=== PATIENT | male | born 1940 | race Caucasian/White ===

== ENCOUNTER 2021-05-08 14:21 | Observation (INO) | payer MEDICARE ==
[2021-05-08] VITALS (9 sets, daily range): BP systolic 127–168; BP diastolic 65–86
[~2021-05-08] VITALS: Ht 175.3 cm; Wt 70.0 kg
[~2021-05-08 14:21] MED LIST: AMLODIPINE BESY10 MG PO; AMLODIPINE5 MG PO; AMOXICILLIN500 MG PO; BABY ASPIRIN81 MG PO; CARDIZEM CD 180 PO; DIGITEK0.25 MG PO; DIGOXIN0.25 MG PO; FISH OIL1000 MG PO; FLUARIX QUADRIV1 IN1 IM; FLUZONE SPLT1 M1 IM; LISINOPRIL10 MG PO; LISINOPRIL20 M1 PO; LOSARTAN POTASS50 MG PO; MAXZIDE-2537.5 MG/TA PO; MULTIVITAMIN OR; PAROXETINE10 MG PO; PAROXETINE20 MG PO; PAROXETINE40 MG PO; PRADAXA75 MG PO; PROTONIX40 M2 PO; STRESS FORMULA OR; STRESS FORMULA PO; TENORMIN25 MG PO; TENORMIN50 MG PO; WARFARIN2.5 MG PO; WARFARIN5 MG PO; ZOCOR10 MG PO; [UNRECOGNIZED DRUG - CODE] PO
[2021-05-08 16:02] LABS: HEMATOCRIT 24.3 % (39.0-50.0); MEAN CELL VOLUME 91.4 fL CALC (80.0-100.0); MEAN CORPUSCULAR HGB 30.1 pG CALC (26.0-32.0); MEAN CORPUSCULAR HGB CONC 32.9 g/dL CAL (32.0-36.0); NEUT# 3.4 thou/uL (1.82-7.42); RED BLOOD COUNT 2.66 mill/uL (4.70-6.10); RED CELL DISTRI WIDTH 13.3 % (11.5-15.5); URINE BILIRUBIN - DIPSTICK NEGATIVE (NEGATIVE); URINE BLOOD DIPSTICK NEGATIVE (NEGATIVE); URINE COLOR YELLOW; URINE GLUCOSE - DIPSTICK NEGATIVE (NEGATIVE); URINE KETONE NEGATIVE (NEGATIVE); URINE LEUK ESTERASE NEGATIVE (NEGATIVE); URINE PH 7.5 (4.5-8.0); URINE PROTEIN - DIPSTICK NEGATIVE (NEG-TRACE); URINE SPECIFIC GRAVITY 1.015; URINE UROBILINOGEN - DIPSTICK 0.2 E.U./dL (0.2)
[2021-05-08 16:08] LABS: URINE NITRITE - DIPSTICK NEGATIVE (Negative)
[2021-05-08 16:19] LABS: ACT PARTIAL THROMBO TIME 22.2 SECONDS (20.0-32.5); ALKALINE PHOSPHATASE 62 u/l (38-126); ANION GAP 9 (6-22 (CALC)); BILIRUBIN, TOTAL 0.7 mg/dL (0.0-1.4); BUN 20 mg/dL (8-23); BUN/CREATININE RATIO 20 (12-20 (CALC)); CARBON DIOXIDE 29 mmol/l (22-30); CHLORIDE 104 mmol/l (95-108); GFR > 60 ML/MIN (>=60 (CALC)); GFR FOR AFR.AMER. > 60 ML/MIN (>=60 (CALC)); LIPASE 211 u/l (23-300); MAGNESIUM 2.2 mg/dL (1.6-2.3); POTASSIUM 3.6 mmol/l (3.5-5.1); PROTHROMBIN TIME 10.4 SECONDS (9.0-12.5); SGOT/AST 39 u/l (19-48); SODIUM 139 mmol/l (137-146)
[2021-05-08 16:20] LABS: TOTAL PROTEIN 6.8 g/dL (6.3-8.2)
[2021-05-09 01:20] VITALS: BP 147/77
[2021-05-09 03:45] VITALS: BP 157/85
[2021-05-09 06:15] LABS: IMMATURE GRANULOCYTES 0.2 % (0.0-5.0); MEAN CELL VOLUME 90.3 fL CALC (80.0-100.0); MEAN CORPUSCULAR HGB 29.5 pG CALC (26.0-32.0); MEAN CORPUSCULAR HGB CONC 32.7 g/dL CAL (32.0-36.0); NEUT# 3.77 thou/uL (1.82-7.42); RED BLOOD COUNT 3.49 mill/uL (4.70-6.10); RED CELL DISTRI WIDTH 13.7 % (11.5-15.5)
[2021-05-09 06:17] LABS: HEMATOCRIT 31.5 % (39.0-50.0); HEMOGLOBIN 10.3 g/dl (14.0-18.0)
[2021-05-09 06:26] LABS: ANION GAP 9 (6-22 (CALC)); BUN 15 mg/dL (8-23); BUN/CREATININE RATIO 18 (12-20 (CALC)); CARBON DIOXIDE 28 mmol/l (22-30); CHLORIDE 105 mmol/l (95-108); CREATININE 0.8 mg/dL (0.7-1.3); GFR > 60 ML/MIN (>=60 (CALC)); GFR FOR AFR.AMER. > 60 ML/MIN (>=60 (CALC)); POTASSIUM 3.6 mmol/l (3.5-5.1); SODIUM 139 mmol/l (137-146)
[2021-05-09] MEDS ORDERED: BUPROPN HCL300 MG PO (07:07)
[2021-05-09] MEDS ORDERED: FLONASE AL50 MCG/ACT (07:07)
[2021-05-09] MEDS ORDERED: CLOPIDOGREL75 MG PO (07:07)
[2021-05-09 07:50] VITALS: BP 154/91
[2021-05-09 10:19] VITALS: BP 135/68
== END 2021-05-09 11:37 | disposition home or self-care (01) ==
LOC: ED 14:21 → ED-I 16:46 → ED 16:46 → ED-I 17:02 → ED 17:23 → MS2 17:24
PROVIDERS: ADMIT Internal Medicine; ATTEND Internal Medicine
PROC: 30233N1 Transfusion of Nonautologous Red Blood Cells into Peripheral Vein, Percutaneous Approach (ICD-10-PCS; principal; 2021-05-08)
PROC: 30233N1 Transfusion of Nonautologous Red Blood Cells into Peripheral Vein, Percutaneous Approach (ICD-10-PCS; 2021-05-08)
DX: D64.9 Anemia, unspecified (principal); R19.5 Other fecal abnormalities; I10 Essential (primary) hypertension; I48.91 Unspecified atrial fibrillation; Z20.822 Contact with and (suspected) exposure to COVID-19; D50.0 Iron deficiency anemia secondary to blood loss (chronic)
CPT/HCPCS: G0378; P9016; S0164

== ENCOUNTER 2022-09-13 09:06 | Day surgery (SDC) | payer MEDICARE ==
[~2022-09-13] VITALS: Ht 175.3 cm; Wt 72.6 kg
[~2022-09-13 09:06] MED LIST changes: +ASPIRIN81 MG PO; +BUPROPN HCL300 MG PO; +CLOPIDOGREL75 MG PO; +FLONASE AL50 MCG/ACT
[2022-09-13 10:57] VITALS: BP 140/76
== END 2022-09-13 11:31 | disposition home or self-care (01) ==
LOC: ENDO 09:06 → ORM 10:50 → ENDO 11:31 → ORM 15:55
PROVIDERS: ATTEND Internal Medicine Gastroenterology
PROC: 0DB38ZX Excision of Lower Esophagus, Via Natural or Artificial Opening Endoscopic, Diagnostic (ICD-10-PCS; principal; 2022-09-13)
PROC: 0DB78ZX Excision of Stomach, Pylorus, Via Natural or Artificial Opening Endoscopic, Diagnostic (ICD-10-PCS; 2022-09-13)
PROC: 0DB28ZX Excision of Middle Esophagus, Via Natural or Artificial Opening Endoscopic, Diagnostic (ICD-10-PCS; 2022-09-13)
PROC: 0W3P8ZZ Control Bleeding in Gastrointestinal Tract, Via Natural or Artificial Opening Endoscopic (ICD-10-PCS; 2022-09-13)
DX: K31.811 Angiodysplasia of stomach and duodenum with bleeding (principal); K29.71 Gastritis, unspecified, with bleeding; K20.91 Esophagitis, unspecified with bleeding; K44.9 Diaphragmatic hernia without obstruction or gangrene; D50.9 Iron deficiency anemia, unspecified; Z87.11 Personal history of peptic ulcer disease